=== PATIENT | male | born 1965 | race American Indian/Alaskan Native ===

== ENCOUNTER 2016-12-28 13:54 | Emergency (ER) | payer BC ==
[2016-12-28 13:58] VITALS: BMI 45.3
--- NOTE | 2016-12-28 14:37 | ED PDOC ---
Arrival/HPI - General Chief Complaint: Weakness/Neurological Deficit Time Seen by Provider: 12/28/16 14:05 Historian: Patient - History of Present Illness Narrative History of Present Illness (Text): 12/28/16 Kavon Restrepo is a 51 year old male, whose past medical history includes hypertension, TIA (August 2016) and intracranial hemorrhage, who presents to the emergency department complaining of feeling dizziness and a headache that radiates to the back of his head. Patient reports that the pain is 7 out 10 and notes that he also has lower leg weakness along with a tingling sensation of his mouth including lips and tongue. Patient states these symptoms are similar to the ones from his last TIA so he decided to come to the emergency department. Patient denies any chest pain, shortness of breath, abdominal pain, visual changes, numbness, or other complaints. PMD: Dr. Cheney Time/Duration: 24 hours Symptom Onset: Sudden Symptom Course: Unchanged Severity Level: 7 Associated Symptoms (Text): headache, lower leg weakness, tingling sensation of his mouth, dizziness Past Medical History - Provider Review Nursing Documentation Reviewed: Yes - Infectious Disease Hx of Infectious Diseases: None - Tetanus Immunization Tetanus Immunization: Unknown - Cardiac Hx Hypertension: Yes - Neurological Hx Transient Ischemic Attacks (TIA): Yes (august 2016) - Musculoskeletal/Rheumatological Hx Falls: No - Psychiatric Hx Depression: No Hx Emotional Abuse: No Hx Physical Abuse: No Hx Substance Use: No - Surgical History Hx Orthopedic Surgery: Yes - Anesthesia Hx Anesthesia Reactions: No Hx Malignant Hyperthermia: No - Suicidal Assessment Feels Threatened In Home Enviroment: No Family/Social History - Physician Review Nursing Documentation Reviewed: Yes Family/Social History: Unknown Family HX Smoking Status: Never Smoked Hx Alcohol Use: No Hx Substance Use: No Allergies/Home Meds Allergies/Adverse Reactions: Allergies No Known Allergies Allergy (Verified 04/18/12 13:43) Home Medications: Home Meds Medication Instructions Recorded Confirmed Amlodipine Besylate 5 mg PO DAILY 04/18/12 12/28/16 Enalapril Maleate 5 mg PO DAILY 04/18/12 12/28/16 Metoprolol Tartrate [Metoprolol 25 mg PO BID 12/28/16 12/28/16 Tartrate] Review of Systems - Review of Systems Constitutional: absent: Fevers Respiratory: absent: SOB Cardiovascular: absent: Chest Pain Gastrointestinal: absent: Abdominal Pain Neurological: Headache, Dizziness, Other (paresthesia on mouth including lips and tongue ) Physical Exam Vital Signs Reviewed: Yes Vital Signs Temp Pulse Resp BP BP Pulse Ox 12/28/16 15:43 71 18 148/90 98 12/28/16 14:35 157/83 H 12/28/16 13:54 98.2 F 76 18 157/83 H 98 Temperature: Afebrile Blood Pressure: Hypertensive Pulse: Regular Respiratory Rate: Normal Appearance: Positive for: Well-Appearing, Non-Toxic, Comfortable Pain Distress: None Mental Status: Positive for: Alert and Oriented X 3 Finger Stick Blood Glucose: 109 - Systems Exam Head: Present: Atraumatic, Normocephalic Pupils: Present: PERRL Extroacular Muscles: Present: EOMI Conjunctiva: Present: Normal Mouth: Present: Moist Mucous Membranes Neck: Present: Normal Range of Motion Respiratory/Chest: Present: Clear to Auscultation, Good Air Exchange. No: Respiratory Distress, Accessory Muscle Use Cardiovascular: Present: Regular Rate and Rhythm, Normal S1, S2. No: Murmurs Abdomen: Present: Normal Bowel Sounds. No: Tenderness, Distention, Peritoneal Signs Upper Extremity: Present: Normal Inspection. No: Cyanosis, Edema Lower Extremity: Present: Normal Inspection. No: Edema Neurological: Present: GCS=15, CN II-XII Intact, Speech Normal Skin: Present: Warm, Dry, Normal Color. No: Rashes Psychiatric: Present: Alert, Oriented x 3, Normal Insight, Normal Concentration Medical Decision Making ED Course and Treatment: 12/28/16 Impression: 51 year old male with headache, dizziness, and paresthesia on mouth including lips and tongue. r/o CVA/TIA vs electrolyte abnormalities Plan: -- EKG -- CT Head without contrast -- Chest X-ray -- Labs -- Reassess and disposition Progress Notes: EKG: Ordered, reviewed, and independently interpreted the EKG. Rate : 70 BPM Rhythm : NSR Interpretation : LVH 12/28/2016 15:22 Chest X-ray IMPRESSION: No active disease. No interval pathology noted. Dictator : Violette Plaza V. 12/28/16 15:32 Dr. Gallagher called to give me report of CT. States CT head shows no ICH or mass affect or evidence of ischemic stroke. 09/06/17 16:[address] Patrick who will see him as an outpatient. Patient's symptoms have resolved. He does not want to stay in the hospital. He says he already has follow up with Dr. Patrick as an outpatient and will like to just keep that appointment. Neuro exam normal. NIHSS 0. - Lab Interpretations Lab Results: 12/28/16 14:25 12/28/16 14:25 Lab Results 12/28/16 15:00: Blood Type Confirm O POSITIVE 12/28/16 14:25: POC Glucose (mg/dL) 109 12/28/16 14:25: Blood Type O POSITIVE, Antibody Screen Negative, BBK History Checked No verified bt 12/28/16 14:25: Sodium 141, Potassium 4.0, Chloride 103, Carbon Dioxide 27, Anion Gap 15, BUN 12, Creatinine 0.8, Est GFR ( Amer) > 60, Est GFR (Non- Af Amer) > 60, Random Glucose 96, Calcium 9.5, Total Bilirubin 0.8, AST 36, ALT 51, Alkaline Phosphatase 71, Troponin I < 0.01, Total Protein 7.4, Albumin 4.2, Globulin 3.2, Albumin/Globulin Ratio 1.3, Triglycerides 110, Cholesterol 121 L, LDL Cholesterol Direct 50, HDL Cholesterol 44 12/28/16 14:25: PT 10.7, INR 0.99, APTT 27.1 12/28/16 14:25: WBC 4.8, RBC 4.72, Hgb 14.6, Hct 42.4, MCV 89.8, MCH 30.9, MCHC 34.4, RDW 13.4, Plt Count 255, MPV 10.3, Gran % 51.5, Lymph % (Auto) 37.9 H, Nicholas % (Auto) 9.4 H, Eos % (Auto) 0.8 L, Baso % (Auto) 0.4, Gran # 2.45, Lymph # 1.8, Nicholas # 0.5, Eos # 0.0, Baso # 0.02 I have reviewed the lab results: Yes Interpretation: All labs normal - RAD Interpretation Radiology Orders: 12/28/16 14:13 CHEST PORTABLE [RAD] Stat 12/28/16 14:14 HEAD W/O CONTRAST [CT] Stat Mechanical Integrity Engineer: Radiologist - EKG Interpretation Interpreted by ED Physician: Yes Type: 12 lead EKG NIHSS Scale ([place]) Time Performed: 14:05 - How Severe is the Stoke Baseline Level of Consciousness: 0=Alert LOC to Questions: 0=Both comments correct LOC to commands: 0=Obeys both correctly Best Gaze: 0=Normal Visual: 0=No visual loss Facial: 0=Normal Motor Arm - Left: 0=No drift Motor Arm - Right: 0=No drift Motor Leg - Left: 0=No drift Motor Leg - Right: 0=No drift Limb Ataxia: 0=Absent Sensory: 0=Normal Best Language: 0=No aphasia Dysarthia: 0=Normal articulation Extinction & Inattention (Neglect): 0=Normal, no object Score: 0 Risk Level: No Stroke Risk rTPA Inclusion/Exclusion - Refusal of Treatment Patient Refused Treatment: No - Inclusion Criteria for Altepase Patient is 18 years or Older: Yes The Clinical Diagnosis of Ischemic Stroke That is Causing a Potentially Disabling Neurological Deficit: No Time of Onset is Well Established to be Less Than 270 Minute Before Treatment Would Begin: No Risk/Benefit Discussed With Patient/Family Member Present: No - Scribe Statement The provider has reviewed the documentation as recorded by the Scribe 12/28/2016 Sonam Boldendua Provider Scribe Attestation: All medical record entries made by the Scribe were at my direction and personally dictated by me. I have reviewed the chart and agree that the record accurately reflects my personal performance of the history, physical exam, medical decision making, and the department course for this patient. I have also personally directed, reviewed, and agree with the discharge instructions and disposition. Disposition/Present on Arrival - Present on Arrival Any Indicators Present on Arrival: No History of DVT/PE: No History of Uncontrolled Diabetes: No Urinary Catheter: No History of Decub. Ulcer: No History Surgical Site Infection Following: None - Disposition Have Diagnosis and Disposition been Completed?: Yes Diagnosis: Dizziness Disposition: HOME/ ROUTINE Disposition Time: 15:34 Patient Problems: Current Active Problems Problem Status Onset Dizziness Acute Condition: IMPROVED Discharge Instructions (ExitCare): Dizziness (ED) Additional Instructions: Ms Restrepo, thank you for letting us take care of you today. Your provider was Dr. Newton. You were treated for Dizziness. The emergency medical care you received today was directed at your acute symptoms. If you were prescribed any medication, please fill it and take as directed. It may take several days for your symptoms to resolve. Return to the Emergency Department if your symptoms worsen, do not improve, or if you have any other problems. Please contact your doctor or call one of the physicians/clinics you have been referred to that are listed on the Patient Visit Information form that is included in your discharge packet. Bring any paperwork you were given at discharge with you along with any medications you are taking to your follow up visit. Our treatment cannot replace ongoing medical care by a primary care provider (PCP) outside of the emergency department. Thank you for allowing the [facility] team to be part of your care today. If you had an X-Ray or CT scan: A Radiologist will review the ED reading if any change in treatment is needed we will contact you. If you had a blood, urine, or wound culture: It will take several days for the results, if any change in treatment is needed we will contact you. If you had an STI test: It will take 48 hours for the results. Please call after 1 week if you have not heard back. Referrals: PCP,NO [Primary Care Provider] - Follow up with primary Forms: [employer] ([place]ovenian)
[2016-12-28 14:40] LABS: BASO # 0.02 K/mm3 (0.0-2.0); BASO % 0.4 % (0.0-3.0); EOS % 0.8 % (1.5-5.0); GRAN # 2.45 (1.4-6.5); GRAN % 51.5 % (50.0-68.0); HEMATOCRIT 42.4 % (42.0-52.0); LYMPH # 1.8 (1.2-3.4); LYMPH % 37.9 % (22.0-35.0); MEAN CELL VOLUME 89.8 fl (80.0-105.0); MEAN CORPUSCULAR HEMOGLOBIN 30.9 pg (25.0-35.0); MEAN CORPUSCULAR HGB CONC 34.4 g/dl (31.0-37.0); MEAN PLATELET VOLUME 10.3 fl (7.0-11.0); MONO # 0.5 (0.1-0.6); MONO % 9.4 % (1.0-6.0); RED CELL DISTRIBUTION WIDTH 13.4 % (11.5-14.5); WHITE BLOOD COUNT 4.8 10^3/ul (4.5-11.0)
[2016-12-28 14:50] LABS: INR 0.99 (0.93-1.08); PARTIAL THROMBOPLASTIN TIME 27.1 Seconds (23.7-30.8)
[2016-12-28 14:54] LABS: ALB/GLOB RATIO 1.3 (1.1-1.8); ALKALINE PHOSPHATASE 71 U/L (38-126); ALT/SGPT 51 U/L (7-56); AST/SGOT 36 U/L (17-59); BILIRUBIN,TOTAL 0.8 mg/dL (0.2-1.3); BLOOD UREA NITROGEN 12 mg/dL (7-21); CALCIUM 9.5 mg/dL (8.4-10.5); CARBON DIOXIDE 27 mmol/L (21-33); CHLORIDE 103 mmol/L (98-107); CHOLESTEROL 121 mg/dL (130-200); GFR AFRICAN-AMERICAN > 60; GLUCOSE,RANDOM 96 mg/dL (70-110); SODIUM 141 mmol/L (132-148); TOTAL PROTEIN 7.4 g/dL (5.8-8.3)
--- NOTE | 2016-12-28 15:24 | RAD ---
HISTORY: r/o TIA COMPARISON: 04/18/2012 FINDINGS: LUNGS: No active pulmonary disease. PLEURA: No significant pleural effusion identified, no pneumothorax apparent. CARDIOVASCULAR: Mild cardiomegaly similar-appearing OSSEOUS STRUCTURES: No significant abnormalities. VISUALIZED UPPER ABDOMEN: Normal. OTHER FINDINGS: None. IMPRESSION: No active disease. No interval pathology noted
[2016-12-28 15:26] LABS: TROPONIN I < 0.01 ng/mL
[2016-12-28 15:39] VITALS: TEMP 98.2
--- NOTE | 2016-12-28 15:49 | CT ---
PROCEDURE: CT HEAD WITHOUT CONTRAST. HISTORY: dizziness and heller r/o cva COMPARISON: None available. TECHNIQUE: Axial computed tomography images were obtained through the head/brain without intravenous contrast. Radiation dose: Total exam DLP = 734 mGy-cm. This CT exam was performed using one or more of the following dose reduction techniques: Automated exposure control, adjustment of the mA and/or kV according to patient size, and/or use of iterative reconstruction technique. FINDINGS: HEMORRHAGE: No intracranial hemorrhage. BRAIN: No mass effect or edema. No atrophy or chronic microvascular ischemic changes. VENTRICLES: Unremarkable. No hydrocephalus. CALVARIUM: Unremarkable. PARANASAL SINUSES: Unremarkable as visualized. No significant inflammatory changes. MASTOID AIR CELLS: Unremarkable as visualized. No inflammatory changes. OTHER FINDINGS: None. IMPRESSION: No acute findings
[2016-12-28 16:36] VITALS: BP 148/82; PULSE 77; RESP 16; O2SAT 95
--- NOTE | 2016-12-28 17:06 | CARD ---
APPROVED REPORT EKG Measurement Heart [id number] <Conclusion> Normal sinus rhythm Minimal voltage criteria for LVH, may be normal variant Borderline ECG
== END 2016-12-28 16:36 | disposition home or self-care (01) ==
LOC: ED 13:54
DX: R42 Dizziness and giddiness (principal); I10 Essential (primary) hypertension

== ENCOUNTER 2017-12-09 21:33 | Emergency (ER) | payer BC, OTHER ==
--- NOTE | 2017-12-09 21:44 | ED PDOC ---
Arrival/HPI - General Time Seen by Provider: 12/09/17 21:37 Historian: Patient - History of Present Illness Narrative History of Present Illness (Text): 12/09/17 21:40 52yo morbidly obese male with pmhx of hypertension present with complaint of left ankle pain. States pain is localized on his Achilles area. He states that he accidentally steeped into a hole on a side walk yesterday. States pain became worse today. He ambulates with a limp. States he did not take any analgesic because he don't take pain medication. Denies any other complaint. Past Medical History - Provider Review Nursing Documentation Reviewed: Yes - Infectious Disease Hx of Infectious Diseases: None - Tetanus Immunization Tetanus Immunization: Unknown - Cardiac Hx Hypertension: Yes - Neurological Hx Transient Ischemic Attacks (TIA): Yes (august 2016) - Musculoskeletal/Rheumatological Hx Falls: No - Psychiatric Hx Depression: No Hx Emotional Abuse: No Hx Physical Abuse: No Hx Substance Use: No - Surgical History Hx Orthopedic Surgery: Yes - Anesthesia Hx Anesthesia Reactions: No Hx Malignant Hyperthermia: No - Suicidal Assessment Feels Threatened In Home Enviroment: No Family/Social History - Physician Review Nursing Documentation Reviewed: Yes Family/Social History: Unknown Family HX Smoking Status: Never Smoked Hx Alcohol Use: No Hx Substance Use: No Allergies/Home Meds Allergies/Adverse Reactions: Allergies No Known Allergies Allergy (Verified 04/18/12 13:43) Home Medications: Home Meds Medication Instructions Recorded Confirmed Metoprolol Tartrate [Metoprolol 50 mg PO BID 12/28/16 12/09/17 Tartrate] amLODIPine [Norvasc] 10 mg PO DAILY 12/09/17 12/09/17 cloNIDine 0.1 mg/24 hr [catapres 1 patch TD DAILY 12/09/17 12/09/17 TTS1 0.1 mg/24 hr] Review of Systems - Physician Review All systems were reviewed & negative as marked: Yes - Review of Systems Constitutional: Normal Eyes: Normal ENT: Normal Respiratory: Normal Cardiovascular: Normal Gastrointestinal: Normal Genitourinary Male: Normal Musculoskeletal: Arthralgias (LEft ankle) Skin: Normal Neurological: Normal Endocrine: Normal Hemo/Lymphatic: Normal Psychiatric: Normal Physical Exam Vital Signs Reviewed: Yes Temperature: Afebrile Blood Pressure: Normal Pulse: Regular Respiratory Rate: Normal Appearance: Positive for: Well-Appearing, Non-Toxic, Comfortable Pain Distress: None Mental Status: Positive for: Alert and Oriented X 3 - Systems Exam Head: Present: Atraumatic, Normocephalic Pupils: Present: PERRL Extroacular Muscles: Present: EOMI Conjunctiva: Present: Normal Mouth: Present: Moist Mucous Membranes Neck: Present: Normal Range of Motion Respiratory/Chest: Present: Clear to Auscultation, Good Air Exchange. No: Respiratory Distress, Accessory Muscle Use Cardiovascular: Present: Regular Rate and Rhythm, Normal S1, S2. No: Murmurs Abdomen: No: Tenderness, Distention, Peritoneal Signs Back: Present: Normal Inspection Upper Extremity: Present: Normal Inspection. No: Cyanosis, Edema Lower Extremity: Present: NORMAL PULSES, Normal ROM, Tenderness (Over the achilles tendon), Neurovascularly Intact. No: Edema, Swelling Neurological: Present: GCS=15, CN II-XII Intact, Speech Normal Skin: Present: Warm, Dry, Normal Color. No: Rashes Psychiatric: Present: Alert, Oriented x 3, Normal Insight, Normal Concentration Medical Decision Making ED Course and Treatment: 12/09/17 23:29 PT presented for stated history. Left ankle xray FINDINGS: Bones/joints: Tiny plantar calcaneal spur. Osteoarthritis of tibiotalar joint. Small defect in the distal tibia, likely old with small corticated ossific fragment just distal to tibia, as seen on the lateral view. No acute fracture. No dislocation. Soft tissues: Soft tissue swelling. Calcific tendinopathy of the Achilles tendon. IMPRESSION: No acute fracture or dislocation. Result was DW the pt. Vickey wrap was applied and he was given crutches. Advised to RICE ankle. Referred to ortho. He declined analgesic. - RAD Interpretation Radiology Orders: 12/09/17 21:45 ANKLE LEFT 3 VIEWS ROUTINE [RAD] Stat Disposition/Present on Arrival - Present on Arrival Any Indicators Present on Arrival: No History of DVT/PE: No History of Uncontrolled Diabetes: No Urinary Catheter: No History Surgical Site Infection Following: None - Disposition Have Diagnosis and Disposition been Completed?: Yes Diagnosis: Ankle sprain Disposition: HOME/ ROUTINE Disposition Time: 23:30 Patient Plan: Discharge Condition: STABLE Discharge Instructions (ExitCare): Ankle Sprain Additional Instructions: Rest, Ice, compress and elevate ankle Follow up with your Doctor/orthopedist Return to Emergency department for any new or worsening symptoms Referrals: Rebel José MD [Staff Provider] - Follow up with primary
[2017-12-09 21:50] VITALS: BMI 46.0
[2017-12-09 23:40] VITALS: TEMP 98; O2SAT 96
[2017-12-09 23:42] VITALS: BP 142/78; PULSE 87; RESP 19
--- NOTE | 2017-12-10 09:02 | RAD ---
Date of service: 12/09/2017 PROCEDURE: Left Ankle Radiographs. HISTORY: Ankle pain s/p trauma COMPARISON: None FINDINGS: BONES: No evidence of acute displaced fracture nor dislocation. The osseous structures including talar dome appear intact. Small posterior and tiny plantar calcaneal enthesophytes are JOINTS: Mild degenerative osteoarthritis tibiotalar articulation more spurring along the anterior inferior margin of tibia could represent corticated ossified loose body within anterior joint space margin. SOFT TISSUES: Normal. OTHER FINDINGS: None. IMPRESSION: No acute displaced fracture nor dislocation. Degenerative osteoarthritis as described
== END 2017-12-09 23:40 | disposition home or self-care (01) ==
LOC: ED 21:33
DX: S93.402A Sprain of unspecified ligament of left ankle, initial encounter (principal); X58.XXXA Exposure to other specified factors, initial encounter; I10 Essential (primary) hypertension; E66.01 Morbid (severe) obesity due to excess calories

== ENCOUNTER 2018-05-16 12:09 | Emergency (ER) | payer BC, OTHER ==
[2018-05-16 13:09] VITALS: BMI 41.8
[2018-05-16 13:13] VITALS: RESP 18; TEMP 99
[2018-05-16] MEDS ORDERED: guaiFENesin DM 200 mg-20 mg/10 ml UD PO PRN (13:34)
[2018-05-16] MEDS ORDERED: Sodium Chloride 0.9% 1,000 ML IV STA (13:34)
--- NOTE | 2018-05-16 13:45 | ED PDOC ---
Arrival/HPI - General Historian: Patient - History of Present Illness Narrative History of Present Illness (Text): {t is a 52 tr old male wth PMH HTN who presents to [facility] ED with c/o CAI, body aches, cough congestion and diarrhea since monday after recieving the flu shot. Patient states that he Has had 3-4 episodes of diarrhea daily over the last 3 days. He states that his cough is currently productive of green sputum which began yesterday evening prior to that his cough was non productive. He otherwise denies F/C, N/V, Chest pain, SOB, Dizziness, abdominal pain, dysuria and extremity pain/weakness. Of note patient states he forgot to put on his weekly clonidine patch this morning but took his metoprolol and hydralazine this morning and his amlodipine last night. 05/16/18 13:42 <Karley Amaya - Last Filed: 05/16/18 15:34> <Carolin Hermosillo - Last Filed: 05/16/18 15:54> - General Chief Complaint: Flu-like Symptoms Time Seen by Provider: 05/16/18 12:19 Past Medical History - Provider Review Nursing Documentation Reviewed: Yes - Travel History Have you recently traveled outside [place] w/in the past 3 mons?: No - Infectious Disease Hx of Infectious Diseases: None - Tetanus Immunization Tetanus Immunization: Unknown - Cardiac Hx Cardiac Disorders: Yes Hx Hypertension: Yes - Pulmonary Hx Respiratory Disorders: No - Neurological Hx Neurological Disorder: Yes Hx Transient Ischemic Attacks (TIA): Yes (august 2016) - HEENT Hx HEENT Disorder: No - Renal Hx Renal Disorder: No - Endocrine/Metabolic Hx Endocrine Disorders: No - Hematological/Oncological Hx Blood Disorders: No - Integumentary Hx Dermatological Disorder: No - Musculoskeletal/Rheumatological Hx Musculoskeletal Disorders: No - Gastrointestinal Hx Gastrointestinal Disorders: No - Genitourinary/Gynecological Hx Genitourinary Disorders: No - Psychiatric Hx Psychophysiologic Disorder: No Hx Substance Use: No - Surgical History Hx Musculoskeletal Surgery: Yes (B/L Knee, L Shoulder, R Wrist) Hx Orthopedic Surgery: Yes Other/Comment: Achillies - Anesthesia Hx Anesthesia Reactions: No Hx Malignant Hyperthermia: No - Suicidal Assessment Feels Threatened In Home Enviroment: No <Karley Amaya - Last Filed: 05/16/18 15:34> Family/Social History - Physician Review Nursing Documentation Reviewed: Yes Family/Social History: Unknown Family HX Smoking Status: Never Smoked Hx Alcohol Use: No Hx Substance Use: No <Karley Amaya - Last Filed: 05/16/18 15:34> Allergies/Home Meds <Karley Amaya - Last Filed: 05/16/18 15:34> <Carolin Hermosillo - Last Filed: 05/16/18 15:54> Allergies/Adverse Reactions: Allergies No Known Allergies Allergy (Verified 05/16/18 13:09) Home Medications: Home Meds Medication Instructions Recorded Confirmed Metoprolol Tartrate 50 mg PO BID 12/28/16 05/16/18 RX: cloNIDine 0.1 mg/24 hr 1 patch TD DAILY 12/09/17 05/16/18 [catapres TTS1 0.1 mg/24 hr] amLODIPine [Norvasc] 10 mg PO DAILY 12/09/17 05/16/18 RX: hydrALAZINE [Apresoline] 25 mg PO DAILY 05/16/18 05/16/18 Review of Systems - Physician Review All systems were reviewed & negative as marked: Yes - Review of Systems Constitutional: Fatigue. absent: Fevers Respiratory: Cough, Sputum. absent: SOB Cardiovascular: absent: Chest Pain, Palpitations, Edema Gastrointestinal: absent: Abdominal Pain, Nausea, Vomiting Genitourinary Male: absent: Dysuria Musculoskeletal: absent: Arthralgias, Neck Pain Neurological: Headache. absent: Dizziness, Speech Changes, Facial Droop Endocrine: absent: Diaphoresis <Karley Amaya - Last Filed: 05/16/18 15:34> Physical Exam Vital Signs Temp Pulse Resp BP Pulse Ox 05/16/18 13:11 99.0 F 85 18 163/102 H 95 Temperature: Afebrile Blood Pressure: Hypertensive Pulse: Regular Respiratory Rate: Normal Appearance: Positive for: Well-Appearing, Non-Toxic, Comfortable Pain Distress: None Mental Status: Positive for: Alert and Oriented X 3 - Systems Exam Head: Present: Atraumatic, Normocephalic Pupils: Present: PERRL Extroacular Muscles: Present: EOMI Mouth: Present: Dry Nose (Internal): Present: Boggy, Rhinorrhea Neck: Present: Normal Range of Motion Respiratory/Chest: Present: Clear to Auscultation. No: Respiratory Distress, Accessory Muscle Use Cardiovascular: Present: Regular Rate and Rhythm, Normal S1, S2. No: Murmurs Abdomen: No: Tenderness, Distention, Peritoneal Signs Upper Extremity: Present: Normal Inspection, NORMAL PULSES. No: Edema Lower Extremity: Present: Normal Inspection, NORMAL PULSES. No: Edema Neurological: Present: GCS=15, CN II-XII Intact, Speech Normal Skin: Present: Warm, Dry, Normal Color Psychiatric: Present: Alert, Oriented x 3, Normal Insight, Normal Concentration <Karley Amaya - Last Filed: 05/16/18 15:34> Vital Signs Temp Pulse Resp BP Pulse Ox 05/16/18 14:15 83 151/79 H 05/16/18 13:11 99.0 F 85 18 163/102 H 95 <Carolin Hermosillo - Last Filed: 05/16/18 15:54> Medical Decision Making ED Course and Treatment: Impression: 52 yr old male PMH HTN presents with flu like symptoms, likely immune reaction after receiving flu shot on monday Plan: CXR Toradol Tessalon perles clonidine patch reassess and dispo 05/16/18 13:47 BP improved pt reports symptom improvement, plan for d/c home 05/16/18 14:45 - RAD Interpretation Radiology Orders: 05/16/18 13:34 CHEST TWO VIEWS (PA/LAT) [RAD] Stat - Medication Orders Current Medication Orders: Benzonatate (Tessalon Perles) 100 mg PO STAT STA Stop: 05/16/18 13:41 Ketorolac Tromethamine (Toradol) 15 mg IM STAT STA Stop: 05/16/18 13:41 <Karley Amaya - Last Filed: 05/16/18 15:34> ED Course and Treatment: 05/16/18 15:53 Patient seen by resident and then evaluated by me. Complaining of flu and uri like symptoms x4 days. No complaint of chest pain, shortness of breath or abdominal pain. No abdominal tenderness on exam. Nasal congestion and coughing on exam. Cxray negative for pneumonia. Requesting work note. - RAD Interpretation Radiology Orders: 05/16/18 13:34 CHEST TWO VIEWS (PA/LAT) [RAD] Stat - Medication Orders Current Medication Orders: Discontinued Medications Benzonatate (Tessalon Perles) 100 mg PO STAT STA Stop: 05/16/18 13:41 Last Admin: 05/16/18 14:17 Dose: 100 mg Clonidine HCl (Catapres-Tts2 0.2 Mg/24 Hr) 1 patch TD ONCE ONE Stop: 05/16/18 13:50 Last Admin: 05/16/18 14:15 Dose: 1 patch MAR Pulse and Blood Pressure Document 05/16/18 14:15 EQ (Rec: 05/16/18 14:16 EQ [id number]) Pulse Pulse Rate (60-90) 83 Blood Pressure Blood Pressure (100/60-150/90) 151/79 MAR Transdermal Patch Site Document 05/16/18 14:15 EQ (Rec: 05/16/18 14:16 EQ [id number]) Transdermal Patch Site Transdermal Patch Site Right Shoulder Ketorolac Tromethamine (Toradol) 15 mg IM STAT STA Stop: 05/16/18 13:41 Last Admin: 05/16/18 14:17 Dose: 15 mg MAR Pain Assessment Document 05/16/18 14:17 EQ (Rec: 05/16/18 14:17 EQ [id number]) Pain Reassessment Is this a pain reassessment? Yes Sleep Is patient sleeping during reassessment? No IM Administration Charges Document 05/16/18 14:17 EQ (Rec: 05/16/18 14:17 EQ [id number]) Charges for Administration # of IM Administrations 1 <Carolin Hermosillo - Last Filed: 05/16/18 15:54> Disposition/Present on Arrival - Present on Arrival Any Indicators Present on Arrival: No History of DVT/PE: No History of Uncontrolled Diabetes: No Urinary Catheter: No History of Decub. Ulcer: No History Surgical Site Infection Following: None - Disposition Have Diagnosis and Disposition been Completed?: Yes Patient Plan: Discharge <Karley Amaya - Last Filed: 05/16/18 15:34> - Present on Arrival Any Indicators Present on Arrival: No - Disposition Have Diagnosis and Disposition been Completed?: Yes Disposition Time: 14:55 Patient Plan: Discharge <Carolin Hermosillo - Last Filed: 05/16/18 15:54> - Disposition Diagnosis: Upper respiratory infection Disposition: HOME/ ROUTINE Condition: GOOD Discharge Instructions (ExitCare): Viral Upper Respiratory Infection, Adult (DC) Additional Instructions: Follow-up with PMD within 2 days. Rest and fluids. Return to emergency department if condition worsens. motrin or tylenol for fever or pain. Prescriptions: Benzonatate [Tessalon Perles] 100 mg PO TID PRN #20 sgl PRN Reason: Cough Forms: [facility] ([place]), WORK NOTE
--- NOTE | 2018-05-16 14:38 | RAD ---
Date of service: 05/16/2018 HISTORY: cough, r/o pna COMPARISON: 12/28/2016 TECHNIQUE: Chest PA and lateral FINDINGS: LUNGS: No active pulmonary disease. PLEURA: No significant pleural effusion identified. No pneumothorax apparent. CARDIOVASCULAR: No aortic atherosclerotic calcification present. Normal cardiac size. No pulmonary vascular congestion. OSSEOUS STRUCTURES: No significant abnormalities. VISUALIZED UPPER ABDOMEN: Normal. OTHER FINDINGS: None. IMPRESSION: No active disease.
[2018-05-16 15:40] VITALS: BP 135/70; PULSE 80; O2SAT 98
== END 2018-05-16 15:20 | disposition home or self-care (01) ==
LOC: ED 12:09
DX: J06.9 Acute upper respiratory infection, unspecified (principal); I10 Essential (primary) hypertension; Z86.73 Personal history of transient ischemic attack (TIA), and cerebral infarction without residual deficits
CPT/HCPCS: 71046; 96372; 99283; J1885